=== PATIENT | female | born 1995 ===

== ENCOUNTER 2017-11-08 12:31 | Emergency (ER) | payer BC ==
[~2017-11-08] VITALS: Ht 157.5 cm; Wt 63.6 kg
[2017-11-08 12:34] VITALS: BP 142/73; TEMP 99
[2017-11-08 14:28] LABS: COLLECTION METHOD CLEAN CATCH
[2017-11-08 14:37] LABS: MUCOUS Present /lpf; PH 6 (5-8); URINE APPEARANCE Clear; URINE BACTERIA Rare /hpf; URINE BILIRUBIN Negative (NEGATIVE); URINE BLOOD Negative (NEGATIVE); URINE COLOR Yellow; URINE GLUCOSE Negative (NEGATIVE); URINE KETONE Negative (NEGATIVE); URINE LEUKOCYTE ESTERASE Negative (NEGATIVE); URINE NITRATE Negative (NEGATIVE); URINE PROTEIN(semi-quant) Negative (NEGATIVE); URINE RBC 0-2 /hpf; URINE UROBILINOGEN Negative (NEGATIVE)
[2017-11-08] MEDS ORDERED: ZOFRAN ODT4 MG PO (15:18)
[2017-11-08 15:33] VITALS: PULSE 79
== END 2017-11-08 15:34 | disposition home or self-care (01) ==
LOC: COL.ER 12:31
PROVIDERS: Physician Assistant
DX: K29.70 Gastritis, unspecified, without bleeding (principal)

== ENCOUNTER 2020-03-10 17:20 | Emergency (ER) | payer BC ==
[~2020-03-10] VITALS: Ht 157.5 cm; Wt 68.2 kg
[~2020-03-10 17:20] MED LIST: ZOFRAN ODT4 MG PO
[2020-03-10 17:23] VITALS: TEMP 97.7
[2020-03-10] MEDS ORDERED: PHENERGAN 25 TA25 MG PO (17:54)
[2020-03-10 18:24] VITALS: BP 112/71; PULSE 59
== END 2020-03-10 18:53 | disposition home or self-care (01) ==
LOC: COL.ER 17:20
DX: R50.9 Fever, unspecified (principal); R11.2 Nausea with vomiting, unspecified; Z20.828 Contact with and (suspected) exposure to other viral communicable diseases
CPT/HCPCS: J1885; J2550

== ENCOUNTER 2020-03-26 07:45 | Emergency (ER) | payer BC ==
[~2020-03-26] VITALS: Ht 160 cm; Wt 65.9 kg
[~2020-03-26 07:45] MED LIST changes: +PHENERGAN 25 TA25 MG PO
[2020-03-26 07:53] VITALS: TEMP 97.6
[2020-03-26 08:28] LABS: COLLECTION METHOD CLEAN CATCH
[2020-03-26 09:07] LABS: BASO % 0.2 % (0.0-2.0); EOS # 0.3 (0.0-0.7); EOS % 3.9 % (0-4.0); GRAN # 5.8 (1.4-6.5); GRAN % 66.5 % (42.2-75.2); HEMATOCRIT 41.7 % (37.0-47.0); HEMOGLOBIN 14.3 g/dl (12.5-16.0); LYMPH # 1.9 (1.2-3.4); LYMPH % 21.1 % (20.0-51.0); MEAN CELL VOLUME 97 fl (80.0-100.0); MEAN CORPUSCULAR HEMOGLOBIN 33 pg (27.0-31.0); MEAN CORPUSCULAR HGB CONC 34 g/dl (33.0-37.0); MEAN PLATELET VOLUME 9.8 fl (7.4-10.4); MONO # 0.7 (0.1-0.6); MONO % 8.1 % (1.7-9.3); PLATELET COUNT 222 K/mm3 (130-400); RED BLOOD COUNT 4.28 M/mm3 (4.10-5.30); REDCELL DISTRIBUTION WIDTH-CV 11.9 % (11.5-14.5)
[2020-03-26 09:16] LABS: ALANINE AMINOTRANSFERASE 20 U/L (4-34); ALBUMIN 4.3 gm/dL (3.5-5.0); ALKALINE PHOSPHATASE 68 U/L (50-136); ANION GAP 6 mmol/L (7-16); AST,SGOT 25 U/L (15-37); BILIRUBIN,TOTAL 0.8 mg/dL (0.0-1.0); BLOOD UREA NITROGEN 12 mg/dL (7-17); CALCIUM 9.2 mg/dL (8.4-10.2); CARBON DIOXIDE 24 mmol/L (22-30); CHLORIDE 107 mmol/L (98-107); CREATININE, serum 0.73 (0.52-1.25); GLUCOSE 94 mg/dL (74-106); LIPASE 43 U/L (23-300); POTASSIUM 3.9 mmol/L (3.4-5.0); SODIUM 137 mmol/L (137-145); TOTAL PROTEIN 7.3 gm/dL (6.4-8.2)
[2020-03-26 09:18] LABS: C-REACTIVE PROTEIN < 0.5 mg/dL (0.0-0.9)
[2020-03-26 09:36] LABS: MUCOUS Present /lpf; PH 6 (5-8); SQUAMOUS EPITHELIAL 0-2 /hpf; URINE APPEARANCE Hazy; URINE BACTERIA Rare /hpf; URINE BILIRUBIN Negative (NEGATIVE); URINE BLOOD Negative (NEGATIVE); URINE COLOR Amber; URINE GLUCOSE Negative (NEGATIVE); URINE KETONE Trace (NEGATIVE); URINE LEUKOCYTE ESTERASE Negative (NEGATIVE); URINE NITRATE Negative (NEGATIVE); URINE PROTEIN(semi-quant) 2+ (NEGATIVE); URINE RBC 0-2 /hpf
[2020-03-26] MEDS ORDERED: ANTIVERT 12.512.5 MG PO (10:06)
[2020-03-26 10:29] VITALS: BP 133/75; PULSE 58
== END 2020-03-26 10:20 | disposition home or self-care (01) ==
LOC: COL.ER 07:45
PROVIDERS: Emergency Medicine; Nurse Practitioner
DX: R42 Dizziness and giddiness (principal); R11.2 Nausea with vomiting, unspecified; F17.210 Nicotine dependence, cigarettes, uncomplicated
CPT/HCPCS: J2405; J7030